=== PATIENT | male | born 2000 | race Caucasian/White ===

== ENCOUNTER 2022-12-16 07:51 | Emergency (ER) | payer SELFPAY ==
[2022-12-16 07:55] VITALS: BP 144/79; PULSE 58; RESP 12; TEMP 36.2; O2SAT 99; BMI 27.3
--- NOTE | 2022-12-16 08:11 | EX.ED.GENINJ ---
HPI History of Present Illness Chief Complaint: Laceration Informant: patient Onset/Context/Timing Onset: Today Mechanism/Context: Blunt Injury Quality of Pain: Dull Location: Top of scalp Worsened by: Nothing Relieved by: Nothing Associated Symptoms Associated Symptoms: Negative for Parasthesias, Weakness, Loss of function, Inability to ambulate, Loss of consciousness or Amnesia Narrative Narrative: Patient presents with a scalp laceration that occurred today. Patient hit his head on the corner of a table. Patient states he fell to the ground but did not lose consciousness. Patient denies any paresthesias or weakness. Patient describes his pain as aching. Patient states it is over the top of his head. Patient states his last tetanus was approximately 10 years ago. Patient states the bleeding stopped after several minutes of pressure. Patient denies any other injuries. PFSH PFSH Medical History no medical history no medical history Home Medications NK 12/16/22 [History Last Taken Unknown] Allergy/AdvReac Type Severity Reaction Status Date / Time No Known Allergies Allergy Verified 12/16/22 07:53 Surgical History History of herniorrhaphy Social History Smoking Status: Never smoker ROS ROS ED Constitutional Constitutional ED: Denies chills or fever(s) Eyes Eyes: Denies blurry vision or change in vision ENT ENT ED: Denies rhinorrhea or sore throat Cardiovascular Cardiovascular: Denies chest pain or palpitations Respiratory/Chest Respiratory/Chest: Denies cough or dyspnea Gastrointestinal Gastrointestinal: Denies nausea or vomiting Genitourinary Genitourinary ED: Denies dysuria or hematuria Musculoskeletal Musculoskeletal: Denies back pain or neck pain Integumentary Denies abscess or rash Neurologic Neurologic: Reports headache(s); Denies weakness Allergic/Immunologic Allergic/Immunologic ED: Denies mouth swelling or urticaria EXAM Physical Exam Const Vital Signs: 12/16/22 07:55 Temperature 97.2 F L Temperature Source Temporal Pulse Rate 58 L Respiratory Rate 12 Blood Pressure 144/79 H Blood Pressure Mean 100 Pulse Ox 99 Oxygen Delivery Method Room Air Positive well nourished and well developed General Appearance ED: well developed and NAD Eyes PERRL and EOMs intact bilaterally Neck full ROM Neuro oriented x3, CN's II-XII intact bilaterally, moves all extremities, no focal motor deficits and no sensory deficits noted Connie Coma Scale: document GCS findings Spontaneous Obeys Commands Oriented 15 Sensorium / Orientation: alert Motor Exam: strength 5/5 throughout Psych mental status grossly normal and thought process normal Skin Skin Narrative: There is a 3.3 cm full-thickness linear laceration over the top of the scalp near the frontal area. There is mild gapping of the wound margins. There is no bony crepitance or step-off. There are no foreign bodies noted. There is no active bleeding noted. PROC Procedures Lacerations Scalp: Length: 3.3 cm Depth: Sub Q Shape: Linear Prep: Sterile Conditions and Chlorhexadine Laceration repair: Irrigated, Lidocaine with epi, Local and Wound explored Irrigated (ml): 100 Number of Sutures/Juliet: 8 Suture Information: - (Juliet) MDM MDM MDM Narrative Medical decision making narrative: Differential diagnosis includes scalp laceration, closed head injury, and concussion. Since the patient has had no nausea or vomiting, no paresthesias, no loss of consciousness, no seizure, no visual changes, and is not on any blood thinners, I do not feel that patient needs a CT scan of his brain at this time. Patient meets no criteria for CT scan of the head according to the [place] CT head rule. Treatment and Re-Evaluation Narrative: The wound was cleaned and irrigated with copious amounts of normal saline. The wound was anesthetized with 1% lidocaine with epinephrine locally. The wound was closed with 8 juliet under sterile technique. Patient tolerated the procedure well. Bacitracin dressing was applied. Patient was instructed to keep the area clean and dry. Patient was instructed to follow-up with his primary care physician in 5 to 7 days for wound recheck and staple removal. Patient understood and was agreeable with plan. All questions were answered. Discharge Plan Triage Chief Complaint: Laceration ED Provider: Vargas Colon Dx/Rx/DC Orders Clinical Impression: Laceration of scalp, Closed head injury Instructions: ED Head Injury (Adult), ED Laceration Scalp Stitches or Shepherd Prescriptions: No Action NK Primary Care Provider: ALLAN SILVA Disposition Disposition: Home, Self Care
[2022-12-16] MEDS: Lidocaine 1% /Epi 1:100 (20ml) 20 ML Vial INFILT (08:25)
[2022-12-16] MEDS: Diphth,Pertuss(Acell),Tet Vac 0.5 ML Vial IM (08:25)
== END 2022-12-16 08:55 | disposition home or self-care (01) ==
PROVIDERS: Emergency Provider Emergency Medicine; Visit Provider Emergency Medicine
DX: S01.01XA Laceration without foreign body of scalp, initial encounter (principal); W18.09XA Striking against other object with subsequent fall, initial encounter
CPT/HCPCS: 12002; 99283